=== PATIENT | male | born 1945 | race Caucasian/White ===

== ENCOUNTER 2016-12-18 11:44 | Emergency (ER) | payer MEDICARE, MEDICAID ==
[2016-12-18] MEDS ORDERED: Sodium Chloride 0.9% 1,000 ML IV ONE (11:57)
[2016-12-18] MEDS ORDERED: Sodium Chloride 0.9% 5 ML Syringe FLUSH PRN (11:57)
--- NOTE | 2016-12-18 12:23 | EDM.PDOC ---
ED HPI GENERAL MEDICAL PROBLEM - General Time Seen by Provider: 12/18/16 11:48 Source of Information: Reports: Patient, [facility] Records History Limitations: Reports: No Limitations - History of Present Illness INITIAL COMMENTS - FREE TEXT/NARRATIVE: PT SENT BY [place] PROVIDER FOR SOB, HYPOXIA, AND SUSPECTED PNEUMONIA. NO OTHER INFORMATION AFFORDED. PT LETHARGIC AND CONFUSED. DENIES CP. Duration: Other (UNSURE) Improves with: Reports: None Worsens with: Reports: None Associated Symptoms: Reports: Confusion, Shortness of Breath - Related Data Allergies Allergy/AdvReac Type Severity Reaction Status Date / Time morphine Allergy Unknown UNKNOWN Verified 12/18/16 12:00 Home Meds: Home Meds Acetaminophen 650 mg PO BID@0700,1600 08/25/14 [History] Albuterol/Ipratropium [DuoNeb 3.0-0.5 MG/3 ML] 3 ml NEB BIDRT 08/25/14 [History] Aspirin [Angela Chewable Aspirin] 81 mg PO DAILY 08/25/14 [History] Docusate Sodium [Colace] 100 mg PO DAILY 08/25/14 [History] Escitalopram [Lexapro] 10 mg PO DAILY 08/25/14 [History] Metoprolol Succinate [Toprol XL] 25 mg PO DAILY 08/25/14 [History] Omeprazole [priLOSEC OTC] 20 mg PO Q48H 08/25/14 [History] Polyethylene Glycol 3350 [MiraLAX] 17 gm PO DAILY 08/25/14 [History] Potassium Chloride 10 meq PO DAILY 08/25/14 [History] Simvastatin [Zocor] 20 mg PO BEDTIME 08/25/14 [History] cloZAPine 100 mg PO ACBRK 08/25/14 [History] cloZAPine 300 mg PO BEDTIME 08/25/14 [History] QUEtiapine [SEROquel] 100 mg PO BID@0700,1600 12/29/14 [History] Sennosides/Docusate Sodium [Senna S Tablet] 1 tab PO BID@0700,1600 12/29/14 [ History] Magnesium Hydroxide [Milk of Magnesia] 30 ml PO DAILY PRN 01/02/15 [History] metFORMIN HCl [Metformin HCl ER] 1,000 mg PO BIDMEALS 01/02/15 [History] Acetaminophen 650 mg PO Q4HR PRN 05/28/16 [History] Lisinopril 10 mg PO DAILY 05/28/16 [History] Lurasidone HCl [Latuda] 80 mg PO BEDTIME 05/28/16 [History] clonazePAM [Clonazepam] 1 mg PO BEDTIME 05/28/16 [History] guaiFENesin [Diabetic Tussin Ex] 200 mg PO QID PRN 05/28/16 [History] Aspirin [Ecotrin] 325 mg PO DAILY 12/18/16 [History] Cyanocobalamin (Vitamin B-12) [Vitamin B-12] 1,000 mcg PO DAILY 12/18/16 [ History] Ibuprofen 400 mg PO Q6H PRN 12/18/16 [History] Past Medical History HEENT History: Reports: Cataract Other HEENT History: myopia, astigmatism, presbyopia Cardiovascular History: Reports: Heart Failure, High Cholesterol Other Cardiovascular History: hypokalemia Respiratory History: Reports: COPD, Pneumonia, Recurrent, SOB Other Respiratory History: emphysema Gastrointestinal History: Reports: GERD Other Gastrointestinal History: dysphagia Musculoskeletal History: Reports: Osteoarthritis Neurological History: Reports: Other (See Below) Other Neuro History: schizophrenia type II Psychiatric History: Reports: Schizophrenia - Past Surgical History HEENT Surgical History: Reports: Cataract Surgery Social & Family History - Family History Family Medical History: Noncontributory - Tobacco Use Smoking Status *Q: Former Smoker Years of Tobacco use: 50 Packs/Tins Daily: 1 Second Hand Smoke Exposure: No - Alcohol Use Days Per Week of Alcohol Use: 0 - Recreational Drug Use Recreational Drug Use: No ED ROS GENERAL - Review of Systems Review Of Systems: ROS reveals no pertinent complaints other than HPI. Constitutional: Reports: Weakness HEENT: Reports: No Symptoms Respiratory: Reports: Shortness of Breath, Wheezing, Cough Cardiovascular: Reports: No Symptoms Endocrine: Reports: No Symptoms GI/Abdominal: Reports: No Symptoms : Reports: No Symptoms Musculoskeletal: Reports: No Symptoms Skin: Reports: No Symptoms Neurological: Reports: Confusion Psychiatric: Reports: No Symptoms Hematologic/Lymphatic: Reports: No Symptoms Immunologic: Reports: No Symptoms ED EXAM, GENERAL - Physical Exam Exam: See Below Exam Limited By: No Limitations General Appearance: Alert, No Apparent Distress, Lethargic, Other (UNKEPT) Eye Exam: Bilateral Eye: Normal Inspection Nose: Normal Inspection, Normal Mucosa, No Blood Throat/Mouth: Normal Inspection, Normal Oropharynx, No Airway Compromise Head: Atraumatic, Normocephalic Neck: Normal Inspection, Supple Respiratory/Chest: No Respiratory Distress, No Accessory Muscle Use, Chest Non- Tender, Decreased Breath Sounds, Wheezing Cardiovascular: Regular Rate, Rhythm, No Murmur GI/Abdominal: Normal Bowel Sounds, Soft, Non-Tender Back Exam: Normal Inspection. No: CVA Tenderness (L), CVA Tenderness (R) Extremities: Normal Inspection, No Pedal Edema Neurological: Confused Psychiatric: Normal Affect, Normal Mood Skin Exam: Warm, Dry, Intact, Normal Color, No Rash Lymphatic: No Adenopathy Course - Orders/Labs/Meds Orders: Active Orders 24 hr Category Date Time Status Peripheral IV Care [RC] . DIRECTED Care 12/18/16 11:57 Ordered Chest 2V [CR] Stat Exams 12/18/16 11:57 Ordered CBC WITH AUTO DIFF [HEME] Stat Lab 12/18/16 11:57 Ordered COMPREHENSIVE METABOLIC PN,CMP [CHEM] Stat Lab 12/18/16 11:57 Ordered UA W/MICROSCOPIC [URIN] Stat Lab 12/18/16 11:57 Uncollected Sodium Chloride 0.9% @ 999 MLS/HR (1000ml) Med 12/18/16 11:57 Ordered Sodium Chloride 0.9% [Normal Saline] 1,000 ml IV .BOLUS Sodium Chloride 0.9% [Syrex Flush] Med 12/18/16 11:57 Ordered 5 ml FLUSH Q8HR PRN Peripheral IV Insertion Adult [OM.PC] Routine Oth 12/18/16 11:57 Ordered Medication Orders Sodium Chloride (Normal Saline) 1,000 mls @ 999 mls/hr IV .BOLUS ONE Stop: 12/18/16 12:57 Sodium Chloride (Syrex Flush) 5 ml FLUSH Q8HR PRN PRN Reason: Keep Vein Open Meds: Medications Generic Name Dose Route Start Last Admin Trade Name Freq PRN Reason Stop Dose Admin Sodium Chloride 1,000 mls @ 999 mls/hr 12/18/16 11:57 Normal Saline IV 12/18/16 12:57 .BOLUS ONE Sodium Chloride 5 ml 12/18/16 11:57 Syrex Flush FLUSH Q8HR PRN Keep Vein Open - Radiology Interpretation Free Text/Narrative:: CXR SHOWS NO ACUTE PROCESS - Re-Assessments/Exams Free Text/Narrative Re-Assessment/Exam: 12/18/16 13:29 PT AFEBRILE, NONTOXIC APPEARING, VSS. WILL RETURN TO NURSING FACILITY Departure - Departure Time of Disposition: 13:30 Disposition: DC/Tfer to Medicaid [facility] Condition: Fair Clinical Impression: Hypoxia, Weakness generalized - Discharge Information Instructions: Weakness, [id number], Hypoxemia Referrals: Parris Hernandez, [facility] [Primary Care Provider] - Additional Instructions: FOLLOW UP WITH PCP IN 1-2 DAYS - My Orders Last 24 Hours: My Active Orders 12/18/16 11:57 Peripheral IV Care [RC] . DIRECTED Chest 2V [CR] Stat CBC WITH AUTO DIFF [HEME] Stat COMPREHENSIVE METABOLIC PN,CMP [CHEM] Stat UA W/MICROSCOPIC [URIN] Stat Sodium Chloride 0.9% @ 999 MLS/HR (1000ml) Sodium Chloride 0.9% [Normal Saline] 1,000 ml IV .BOLUS Sodium Chloride 0.9% [Syrex Flush] 5 ml FLUSH Q8HR PRN Peripheral IV Insertion Adult [OM.PC] Routine - Assessment/Plan Last 24 Hours: My Active Orders 12/18/16 11:57 Peripheral IV Care [RC] . DIRECTED Chest 2V [CR] Stat CBC WITH AUTO DIFF [HEME] Stat COMPREHENSIVE METABOLIC PN,CMP [CHEM] Stat UA W/MICROSCOPIC [URIN] Stat Sodium Chloride 0.9% @ 999 MLS/HR (1000ml) Sodium Chloride 0.9% [Normal Saline] 1,000 ml IV .BOLUS Sodium Chloride 0.9% [Syrex Flush] 5 ml FLUSH Q8HR PRN Peripheral IV Insertion Adult [OM.PC] Routine Assessment:: SOB Plan: RETURN TO NURSING FACILITY
[2016-12-18 12:44] VITALS: BP 101/48
[2016-12-18 13:03] LABS: CHLORIDE,CL 105 mmol/L (98-115); SODIUM,NA 141 mmol/L (136-145)
== END 2016-12-18 13:45 ==
LOC: KA.ED 11:44
DX: R09.02 Hypoxemia (principal); R53.1 Weakness; I50.9 Heart failure, unspecified; E78.00 Pure hypercholesterolemia, unspecified; J44.9 Chronic obstructive pulmonary disease, unspecified; K21.9 Gastro-esophageal reflux disease without esophagitis; M19.90 Unspecified osteoarthritis, unspecified site; F20.9 Schizophrenia, unspecified; Z98.49 Cataract extraction status, unspecified eye; Z87.891 Personal history of nicotine dependence; Z79.84 Long term (current) use of oral hypoglycemic drugs; Z79.82 Long term (current) use of aspirin; Z79.899 Other long term (current) drug therapy; Z88.5 Allergy status to narcotic agent
CPT/HCPCS: 36415; 71020; 80053; 81001; 85025; 96360; 99285; J7030; 99284